=== PATIENT | male | born 1960 | race Caucasian/White ===

== ENCOUNTER 2018-08-01 10:12 | Emergency (ER) | payer OTHER ==
[2018-08-01 10:17] VITALS: BMI 24.3
[2018-08-01 10:19] VITALS: BP 129/84; PULSE 95; RESP 18; TEMP 98.8; O2SAT 99
--- NOTE | 2018-08-01 10:38 | ED PDOC ---
Arrival/HPI - General Chief Complaint: Suture/Staple Removal Time Seen by Provider: 08/01/18 10:36 - History of Present Illness Narrative History of Present Illness (Text): 58 y/o male with no significant PMH presents to the ED for suture removal after a meniscus repair surgery 3 weeks ago. Pt was supposed to have sutures removed last week, but was unable to make it to his doctor's office hours. He is here today requesting to have the overdue sutures removed per his doctor. Denies numbness, paresthesias, knee pain, difficulty walking, weakness, erythema, swelling, tenderness, wound drainage. PMD: Duc Lyman Past Medical History - Provider Review Nursing Documentation Reviewed: Yes - Infectious Disease Hx of Infectious Diseases: None - Psychiatric Hx Psychophysiologic Disorder: No Hx Substance Use: No - Anesthesia Hx Anesthesia: No Hx Anesthesia Reactions: No Hx Malignant Hyperthermia: No Family/Social History - Physician Review Nursing Documentation Reviewed: Yes Family/Social History: No Known Family HX Smoking Status: Never Smoked Hx Alcohol Use: No Hx Substance Use: No Allergies/Home Meds Allergies/Adverse Reactions: Allergies Penicillins Allergy (Verified 08/01/18 10:20) RASH Home Medications: Home Meds Medication Instructions Recorded Confirmed No Known Home Med 08/01/18 08/01/18 Review of Systems - Physician Review All systems were reviewed & negative as marked: Yes - Review of Systems Constitutional: Normal Eyes: Normal. absent: Vision Changes ENT: Normal Respiratory: Normal. absent: SOB Cardiovascular: Normal. absent: Chest Pain Gastrointestinal: Normal Genitourinary Male: Normal Musculoskeletal: Normal. absent: Arthralgias Skin: Other (3 small well-healed surgical incisions with 1 stitch each on anterior knee). absent: Rash, Abscess, Cellulitis Neurological: Normal Endocrine: Normal Hemo/Lymphatic: Normal Psychiatric: Normal Physical Exam Vital Signs Reviewed: Yes Vital Signs Temp Pulse Resp BP Pulse Ox 08/01/18 10:17 98.8 F 95 H 18 129/84 99 Temperature: Afebrile Blood Pressure: Normal Pulse: Regular Respiratory Rate: Normal Appearance: Positive for: Well-Appearing, Non-Toxic, Comfortable Pain Distress: None Mental Status: Positive for: Alert and Oriented X 3 - Systems Exam Head: Present: Atraumatic, Normocephalic Pupils: Present: PERRL Extroacular Muscles: Present: EOMI Conjunctiva: Present: Normal Mouth: Present: Moist Mucous Membranes Neck: Present: Normal Range of Motion Respiratory/Chest: Present: Clear to Auscultation, Good Air Exchange. No: Respiratory Distress, Accessory Muscle Use Cardiovascular: Present: Regular Rate and Rhythm, Normal S1, S2. No: Murmurs Abdomen: No: Tenderness, Distention, Peritoneal Signs Upper Extremity: Present: Normal Inspection, Normal ROM, NORMAL PULSES, Neurovascularly Intact. No: Cyanosis, Edema, Tenderness, Swelling, Erythema, Deformity Lower Extremity: Present: NORMAL PULSES, Normal ROM, Neurovascularly Intact, Other (3 1cm well-healed incisions around left anterior knee from meniscus repair surgery. Each incision has one stitch. No signs of infection (erythema, warmth, tenderness, drainage).). No: Edema, Tenderness, Swelling, Erythema, Deformity, Temperature Abnormalties Neurological: Present: GCS=15, CN II-XII Intact, Speech Normal, Motor Func Grossly Intact, Normal Sensory Function, Gait Normal Skin: Present: Warm, Dry, Normal Color. No: Rashes Lymphatic: No: Cervical Adenopathy Psychiatric: Present: Alert, Oriented x 3, Normal Insight, Normal Concentration Medical Decision Making ED Course and Treatment: Initial Plan: * Wound cleaning * Suture Removal Plan discussed with pt who agrees and understands, pt stable for discharge home. Impression Encounter for suture removal Plan * Followup with PMD within 2 days * Return for new/worsening symptoms Disposition/Present on Arrival - Present on Arrival Any Indicators Present on Arrival: No History of DVT/PE: No History of Uncontrolled Diabetes: No Urinary Catheter: No History of Decub. Ulcer: No History Surgical Site Infection Following: None - Disposition Have Diagnosis and Disposition been Completed?: Yes Diagnosis: Encounter for removal of sutures Disposition: HOME/ ROUTINE Disposition Time: 10:36 Patient Plan: Discharge Condition: IMPROVED Discharge Instructions (ExitCare): Stitches Removal Additional Instructions: Keep area clean and dry Followup with primary within 2 days Return to ER for new/worsening symptoms or signs of infection Referrals: Duc Lyman DO [Primary Care Provider] - Follow up with primary Forms: [employer] ([employer]), WORK NOTE
== END 2018-08-01 11:04 | disposition home or self-care (01) ==
LOC: ED 10:12
DX: Z48.02 Encounter for removal of sutures (principal)